=== PATIENT | female | born 2000 | race Caucasian/White ===

== ENCOUNTER 2022-05-01 18:30 | Outpatient (CLI) | payer OTHER, SELFPAY ==
[2022-05-01 21:57] VITALS: BP 140/85; PULSE 109
== END 2022-05-01 19:45 | disposition home or self-care (01) ==
PROVIDERS: Visit Provider Obstetrics & Gynecology
DX: O42.92 Full-term premature rupture of membranes, unspecified as to length of time between rupture and onset of labor (principal); Z3A.37 37 weeks gestation of pregnancy
CPT/HCPCS: 59025; 84112

== ENCOUNTER 2022-05-20 15:45 | Outpatient (RCR) | payer OTHER, SELFPAY ==
--- NOTE | ~2022-05-20 | US_ITS ---
EXAMINATION: US OB follow up w BPP, US OB limited DATE: 05/20/2022 17:27 INDICATION: Biophysical profile, amniotic fluid index assessment, and estimated weight during t hird trimester TECHNIQUE: Real-time pelvic ultrasound was performed. The interpreting radiologist was not present fo r the study. COMPARISON: None. FINDINGS: There is a single living fetus in vertex presentation. The placenta is anterior/right lateral. heart rate is 149 beats per minute (bpm). The amniotic fluid index is 8.3 cm which is normal (normal range: 7.1 cm to 21.4 cm). Biophysical profile performed by the technologist: breathing (30 sec sustained breathing in 30 minutes): 2 out of 2 movement (3 gross body movements in 30 minutes): 2 out of 2 tone (one episode of iwukfjp-sonqwlowm-ztvngqw limb movement): 2 out of 2 Amniotic fluid pocket (2 cm): 2 out of 2 Total score: 8 out of 8 The following biometric data were obtained: Biparietal diameter (BPD): 9.5 cm; head circumference (HC): 33.0 cm; abdominal circumference (AC): 36 .1 cm; femur length (FL): 7.5 cm. These measurements are concordant. Estimated weight is 3725 g +/- 558 g, which correlates with the 61st percentile when 05/21/2022 is used as estimated date of delivery. As single measurements, these parameters are each equal to the following estimated gestational ages w ith ranges of +/- 2 standard deviations: BPD: 38 weeks 5 days +/- 3 weeks 1 days. HC: 37 weeks 4 days +/- 2 weeks 5 days. AC: 40 weeks 0 days +/- 3 weeks 0 days. FL: 38 weeks 3 days +/- 3 weeks 1 days. estimated gestational age based solely on measurements from this exam is 38 weeks 5 days +/- 2 weeks 5 days. IMPRESSION: 1. Single living fetus in vertex presentation. 2. Biophysical profile 8 out of 8. 3. Estimated weight is 3725 g +/- 558 g, which correlates with the 61st percentile when 05/21/20 22 is used as estimated date of delivery. 4. Normal amniotic fluid index. Reviewed, dictated and finalized at location A. IMPRESSION: 1. Single living fetus in vertex presentation. 2. Biophysical profile 8 out of 8. 3. Estimated weight is 3725 g +/- 558 g, which correlates with the 61st p ercentile when 05/21/2022 is used as estimated date of delivery. 4. Normal amniotic fluid index.
[2022-05-20 16:35] VITALS: BP 121/73; PULSE 88
== END 2022-08-18 23:59 | disposition home or self-care (01) ==
LOC: ANHOBOP 15:45
PROVIDERS: Visit Provider Obstetrics & Gynecology
DX: O26.893 Other specified pregnancy related conditions, third trimester (principal); Z3A.39 39 weeks gestation of pregnancy
CPT/HCPCS: 59025; 76815; 76816; 76819

== ENCOUNTER 2022-05-21 16:00 | Inpatient (IN) | payer OTHER, SELFPAY ==
[2022-05-21] VITALS (14 sets, daily range): BP systolic 108–141; BP diastolic 61–93; PULSE 83–97; RESP 18; TEMP 37; BMI 37.5
--- NOTE | 2022-05-21 16:00 | LDADM ---
This patient, Sara Garrett, was admitted to Labor/Delivery/Recovery 106 on 05/21/22 at 16:00. Plans for labor, pain management and were discussed with patient. Patient/family oriented to hospital policies and general routines including ID bracelet, bed and alarms, visiting hours, pain management, procedures, bathroom and other care routines, personal items, smoking policy, room service/diet and guest tray routines, security routines, and visiting hours. Patient/Family are encouraged to report perceived risks to care and to ask questions if they do not understand what they are told or what they should do. See OBIX for further documentation.
[2022-05-21 16:51] LABS: Basophils Percent Auto 0.3 % (0.2-1.2); Eosinophils Absolute Auto 0.2 K/mm3 (0-0.3); Eosinophils Percent Auto 1.4 % (0-4.4); Hematocrit 34.5 % (37.0-47.0); Hemoglobin 11.3 g/dL (12.0-15.0); Immature Granulocyte Absolute 0.09 K/mm3 (0.00-0.031); Immature Granulocyte Percent A 0.7 % (0-0.5); Lymphocytes Absolute Auto 2.14 K/mm3 (0.9-3.2); Lymphocytes Percent Auto 15.7 % (18.3-44.2); Mean Corpuscular HGB Conc 32.8 g/dl (32-36); Mean Corpuscular Hemoglobin 27.2 pg (26-34); Mean Corpuscular Volume 82.9 fl (80-100); Mean Platelet Volume 10.4 fl (7.4-10.4); Monocytes Absolute Auto 0.8 K/mm3 (0.1-0.6); Monocytes Percent Auto 6.2 % (2.6-8.5); Neutrophils Absolute Auto 10.3 K/mm3 (1.3-6.7); Neutrophils Percent Auto 75.7 % (45.5-73.1); Platelet Count Result 294 k/mm3 (150-375); Red Blood Count 4.16 M/mm3 (4.2-5.4); Red Cell Distribution Width 16.3 % (11.5-14.5); White Blood Count 13.6 K/mm3 (4.5-10.0)
[2022-05-21] MEDS: DINOPROSTONE 10 MG VAG INSERT VAGINAL (17:15)
--- NOTE | 2022-05-21 18:33 | WPDANESEPP ---
Anes - Eval Pre Procedure Procedure: labor epidural Date/Time: 05/21/22 18:33 Surgeon: nicole Preop Diagnosis: pain during labor Pre Op Diagnosis: iol Patient Data Age: 21 Gender: F Height: 1.6 m Weight: 96 kg Last Vital Signs Pulse 83 05/21/22 18:31 BP 127/76 05/21/22 18:31 O2 Del Method Room Air 05/21/22 16:30 Allergies Allergy/AdvReac Type Severity Reaction Status Date / Time grass pollen Allergy Sneezing Verified 04/23/22 12:41 tree and shrub pollen Allergy Sneezing Verified 04/23/22 12:41 Home Medications Medication Instructions Recorded Confirmed Type prenat.vits,zeke,svs-fdtx-ubsdt 1 tablet PO DAILY 04/23/22 04/23/22 History Laboratory Tests 05/21/22 05/21/22 05/21/22 16:35 16:35 16:35 WBC 13.6 K/mm3 H K/mm3 (4.5-10.0) RBC 4.16 M/mm3 L M/mm3 (4.2-5.4) Hgb 11.3 g/dL L g/dL (12.0-15.0) Hct 34.5 % L % (37.0-47.0) MCV 82.9 fl fl (80-100) MCH 27.2 pg pg (26-34) MCHC 32.8 g/dl g/dl (32-36) RDW 16.3 % H % (11.5-14.5) Plt Count 294 k/mm3 k/mm3 (150-375) MPV 10.4 fl fl (7.4-10.4) Immature Gran % (Auto) 0.7 % H % (0-0.5) Neut % (Auto) 75.7 % H % (45.5-73.1) Lymph % (Auto) 15.7 % L % (18.3-44.2) Stephens % (Auto) 6.2 % % (2.6-8.5) Eos % (Auto) 1.4 % % (0-4.4) Baso % (Auto) 0.3 % % (0.2-1.2) Lymph # (Auto) 2.14 K/mm3 K/mm3 (0.9-3.2) [place] # (Auto) 0.8 K/mm3 H K/mm3 (0.1-0.6) Eos # (Auto) 0.2 K/mm3 K/mm3 (0-0.3) Baso # (Auto) 0.0 K/mm3 K/mm3 (0.0-0.1) Abs Immat Gran (auto) 0.09 K/mm3 H K/mm3 (0.00-0.031) Absolute Neuts (auto) 10.3 K/mm3 H K/mm3 (1.3-6.7) Absolute Nucleated RBC 0.0 K/mm3 K/mm3 (0.0-0.012) Nucleated RBC % 0.0 % % (0.0-0.2) RPR Pending Blood Type O Positive Antibody Screen Negative Patient hx anesthesia problems: none Family hx anesthesia problems: none Results Review: All pre-operative results and documents have been reviewed as part of the pre-operative evaluation. [facility] Family History Family History (Updated 04/23/22 @ 12:44 by Mo Tobar RN) Other Unknown family medical history Social History Social History Smoking status: Never smoker Substance use: never Spiritual care concerns: No Exam Day of Procedure 05/21/22 18:33
[2022-05-22] VITALS (203 sets, daily range): BP systolic 77–144; BP diastolic 40–104; PULSE 78–273; RESP 16; TEMP 36.9–37.3; O2SAT 90–100
[2022-05-22] MEDS: LACTATED RINGERS 1,000 ML 125 ML IV CONT ×3 (06:02→14:34)
[2022-05-22] MEDS: OXYTOCIN 30 UNITS/NS 500 ML 30 UNITS/500 ML BAG 125 UNITS IV CONT (06:02)
--- NOTE | 2022-05-22 08:41 | PM.IMHP ---
H&P: HPI History of Present Illness Date/Time: 05/22/22 08:41 Chief Complaint: Here for induction of labor. Narrative: 21 y/o G1 at 40 1/7 weeks gestation here for induction of labor. Cervidil last night, has been withdrawn. Feeling some contractions. GBS neg. Review of Systems Review of Systems: All systems reviewed & are unremarkable except as noted in HPI and below PMFSH Family History Family History Other Unknown family medical history Social History Social History Smoking status: Never smoker Substance use: never Spiritual care concerns: No Meds Home Medications and Allergies Home Medications Medication Instructions Recorded Confirmed Type prenat.vits,zeke,zsa-tcdp-oyxpp 1 tablet PO DAILY 04/23/22 04/23/22 History Allergies Allergy/AdvReac Type Severity Reaction Status Date / Time grass pollen Allergy Sneezing Verified 04/23/22 12:41 tree and shrub pollen Allergy Sneezing Verified 04/23/22 12:41 Vital Signs Vital Signs - 24 hr 05/21/22 16:44 05/21/22 16:46 05/21/22 17:01 Temperature Pulse Rate 93 97 89 Respiratory Rate Blood Pressure 120/71 116/73 141/89 H Oxygen Delivery 05/21/22 17:31 05/21/22 17:46 05/21/22 18:01 Temperature Pulse Rate 96 93 94 Respiratory Rate Blood Pressure 137/78 134/86 119/89 Oxygen Delivery 05/21/22 18:16 05/21/22 18:31 05/21/22 18:46 Temperature Pulse Rate 96 83 86 Respiratory Rate Blood Pressure 108/61 127/76 121/78 Oxygen Delivery 05/21/22 19:01 05/21/22 19:16 05/21/22 18:00 Temperature 37.0 C Pulse Rate 91 89 Respiratory Rate 18 Blood Pressure 123/93 H 126/90 Oxygen Delivery 05/21/22 18:30 05/21/22 23:43 05/22/22 04:58 Temperature 37.0 C 37.0 C 36.9 C Pulse Rate 91 88 Respiratory Rate 18 Blood Pressure 125/87 130/84 Oxygen Delivery 05/22/22 05:16 05/22/22 05:31 05/22/22 05:46 Temperature Pulse Rate 90 91 90 Respiratory Rate Blood Pressure 125/82 129/69 134/78 Oxygen Delivery 05/22/22 06:01 05/22/22 06:16 05/22/22 06:31 Temperature Pulse Rate 100 90 90 Respiratory Rate Blood Pressure 131/85 127/77 124/75 Oxygen Delivery 05/22/22 06:47 05/22/22 07:01 05/22/22 07:16 Temperature Pulse Rate 91 85 83 Respiratory Rate Blood Pressure 121/71 123/70 121/72 Oxygen Delivery 05/22/22 07:31 05/22/22 07:46 05/22/22 08:01 Temperature Pulse Rate 87 92 88 Respiratory Rate Blood Pressure 121/79 132/74 129/80 Oxygen Delivery 05/22/22 08:31 05/21/22 16:30 Temperature Pulse Rate 88 Respiratory Rate Blood Pressure 124/81 Oxygen Delivery Room Air Exam Const: Orientation/consciousness: patient oriented x3 Other: Well-developed, well-nourished female in no acute distress. Neck: Thyroid: thyroid normal Lymphatic: no lymphadenopathy noted (in neck, axilla or inguinal nodes) Resp: Effort & Inspection: normal respiratory effort Auscultation: clear to auscultation bilaterally Cardio: Rate: regular rate Rhythm: regular rhythm Heart sounds: S1 normal heart sound present and S2 normal heart sound present GI: Other: ABD: Gravid, soft, nontender, nondistended. No guarding or rebound tenderness. No hepatosplenomegaly. NST reactive. TOCO: irregular contractions. : General: Yes no CVA tenderness Other: Cervix 1/50/-3. AROM with clear fluid. IUPC placed. Back/Spine/Pelvis: Back: no CVA tenderness Skin: General skin exam: normal color and no rashes or lesions noted Neuro: General: patient oriented x3 Extrem: Other: Extremities: nontender with no edema Psych: Mental Status: mental status grossly normal Affect: normal affect H&P: Results Labs Labs: Short CBC 05/21/22 Range/Units 16:35 WBC 13.6 H (4.5-10.0) K/mm3 Hgb 11.3 L (12.0-15.0) g/dL Hct 34.5 L (37.0-47.0)
--- NOTE | 2022-05-22 13:15 | PM.OBPNLAB ---
Pain Control Date/time seen: 05/22/22 13:15 Feeling painful contractions. Would like epidural. AVSS NST reactive TOCO: contractions every 2-4 min Cervix /-2 Continue labor.
[2022-05-22 15:36] LABS: Rapid Plasma Reagin Non-Reactive (NonReactive)
--- NOTE | 2022-05-22 16:59 | PM.OBPNLAB ---
Pain Control Date/time seen: 05/22/22 16:59 Comfortable with epidural. AVSS NST reactive TOCO: contractions every 4-5 min Cervix 1-2/50/-2 per RN. Continue labor.
[2022-05-23] VITALS (100 sets, daily range): BP systolic 87–174; BP diastolic 47–109; PULSE 80–224; RESP 15–20; TEMP 36.6–39.2; O2SAT 86–100
[2022-05-23] MEDS: AMPICILLIN 2 GM/NS 100 ML 2 GM/100 ML BAG IVPB (02:20)
[2022-05-23] MEDS: SODIUM CHLORIDE 0.9% IV 300 ML 600 ML I-UTERINE (02:21)
[2022-05-23] MEDS: diphenhydrAMINE HCl INJ 50 MG/ML VIAL 25 MG IV PUSH (03:48)
[2022-05-23] MEDS: AMPICILLIN 1 GM/NS 50 ML 1 GM/50 ML BAG IVPB (06:45)
[2022-05-23] MEDS: LACTATED RINGERS 1,000 ML 999 ML IV CONT (07:03)
--- NOTE | 2022-05-23 07:30 | WPDANESEPP ---
Anes - Eval Pre Procedure Procedure: Operation Date: 05/23/22 07:30 Proposed Procedures p Section - Darryl Sheppard MD Date/Time: 05/23/22 07:30 Surgeon: Valarie Preop Diagnosis: Failure to progress Pre Op Diagnosis: iol Patient Data Age: 21 Gender: F Height: 1.6 m Weight: 96 kg Last Vital Signs Temp 39.1 C H 05/23/22 05:56 Pulse 121 H 05/23/22 07:01 Resp 16 05/23/22 05:56 BP 113/71 05/23/22 07:01 Pulse Ox 100 05/23/22 03:27 O2 Del Method Room Air 05/21/22 16:30 Allergies Allergy/AdvReac Type Severity Reaction Status Date / Time grass pollen Allergy Sneezing Verified 04/23/22 12:41 tree and shrub pollen Allergy Sneezing Verified 04/23/22 12:41 Home Medications Medication Instructions Recorded Confirmed Type prenat.vits,zeke,joc-pqfu-fquxs 1 tablet PO DAILY 04/23/22 04/23/22 History Laboratory Tests 05/21/22 16:35 RPR Non-reactive (NonReactive) Patient hx anesthesia problems: none Family hx anesthesia problems: none Results Review: All pre-operative results and documents have been reviewed as part of the pre-operative evaluation. [facility] Family History Family History Other Unknown family medical history Social History Social History Smoking status: Never smoker Substance use: never Spiritual care concerns: No Exam Day of Procedure 05/23/22 07:30 Patient weight: obese Heart: regular rate and rhythm Lungs: clear to auscultation Airway: Mallampati scale class II Neurological: alert and oriented
--- NOTE | 2022-05-23 07:43 | PM.OBPNLAB ---
Pain Control Date/time seen: 05/23/22 07:43 Still comfortable with epidural. T39.2C. Otherwise, VSS NST 180 bpm, occasional variable deceleration TOCO: adequate contractions Cervix 2/80/-2 A: Arrest of dilation, now with likely chorioamnionitis. P: Offered primary . She understands risks of surgery to include risks of anesthesia, risks of pain, infection, bleeding, blood products, thromboembolic phenomena and damage to adjacent structures such as bowel, bladder, ureters, blood vessels and nerves. She understands all these risks and elects to proceed with surgery.
[2022-05-23] MEDS: KETOROLAC 30 MG/ML VIAL (*BKC) IV PUSH ×2 (08:30→14:37)
--- NOTE | 2022-05-23 09:02 | PM.OBPRVD ---
OB - Delivery Note Procedure Delivery date: 05/23/22 Procedure: Procedures Operation Date: 05/23/22 07:30 <No data on this case meets the specified criteria> Primary low transverse delivery Induction method: Per Cervidil Protocol Delivery augmentation: Rupture of Membranes and Pitocin Delivery monitor: External FHT, External Uterine and Internal Uterine Route of delivery: Specimen: Yes (cord blood, placenta) Quantitative Blood Loss (ml): 1,120 Anesthesia type: Epidural Disposition: PACU Complications: None Narrative: The patient was taken to the operating room where she was prepared and draped in the usual sterile fashion in dorsal supine position with a leftward tilt. She received cefazolin and azithromycin preoperatively. Epidural anesthesia was found to be adequate. A Pfannenstiel skin incision was made and carried through to the underlying layer of the fascia. The fascia was incised in the midline and the incision was extended laterally. The fascia was dissected free of the underlying rectus muscles. The rectus muscles were in the midline. The peritoneum was identified, tented up and entered sharply. The peritoneal incision was extended superiorly and inferiorly with good visualization of the bladder. The bladder blade was placed. The vesicouterine peritoneum was identified, tented up and entered sharply. The incision was extended laterally and the bladder flap was developed. The bladder blade was replaced. The uterus was then incised sharply in a transverse fashion along the lower uterine segment. The incision was extended laterally. The infant's head was delivered atraumatically to the sterile field, followed by the body. The nose and mouth were bulb suctioned. After a delay, the cord was clamped and cut. The infant was handed off the field. Cord blood was collected. The placenta was removed manually and was passed off the field. The uterus was exteriorized and cleared of all clots and debris. The uterine incision was reapproximated using 0 Monocryl in a running, locked fashion. A second, imbricating layer of the same suture was run. Excellent hemostasis resulted as did excellent reapproximation of the normal anatomy. The uterus was returned the abdomen. The pelvis was irrigated copiously with warmed normal saline. Rigorous hemostasis was assured. The fascial layer was reapproximated using 0 Vicryl in a running fashion. The skin was closed with a running, subcuticular stitch of 4 0 Vicryl. Dermaflex was applied externally. Sponge, lap, needle and instrument counts were correct. The patient was taken to the recovery room in stable condition. The went to the nursery in stable condition. I was present and scrubbed the entire procedure. Baby Date of : 05/23/22 Time of : 08:16 Weeks of gestation at delivery: 40 gender: Female Weight (pounds): 7 Weight (ounces): 4 presentation: vertex Placenta delivery description: Manual Removal and Normal Configuration Cord Vessel Description: 3 Vessels and Delayed Cord Clamping score one minute: 7 score five minutes: 9
--- NOTE | 2022-05-23 09:06 | PM.OBDSVD ---
DS: Admitting Diagnosis Discharge Date 05/25/22 Admitting Diagnosis IUP at 40 1/7 weeks DS: Discharge Diagnosis Discharge Diagnosis (1) delivery delivered: Code(s): O82 - Encounter for delivery without indication Status: Acute (2) Chorioamnionitis, delivered, current hospitalization: Code(s): O41.1290 - Chorioamnionitis, unspecified trimester, not applicable or unspecified Status: Acute OB - DS: Summary OB Procedures : NST OB Procedures Intrapartum: OB Procedures: : None Peripartum Data Procedures: Procedures Operation Date: 05/23/22 07:30 <No data on this case meets the specified criteria> Time Spent with Patient Time attestation: Total time spent providing and/or coordinating discharge services: DS: Data Data Completed and Pending Labs on day of discharge: Labs from last 24 hours 05/21/22 16:35 RPR Non-reactive Discharge Plan Discharge Attending physician on discharge: Darryl Sheppard Consulting providers: Merari Reyna ; Verenice Barajas ; Dawna Piña Discharging Clinician: Darryl Sheppard Patient Disposition: Home, Self-Care Activity: may shower, may drive after 2 weeks and pelvic rest Diet: regular Wound Care Instructions: incision open to air Discharge Instructions: Education: Mom and Baby Guide Given to: Mother Follow-Up: Call your delivering provider's office for an appointment to be seen in: 4 Weeks Mom and baby should come to the [facility] for the follow-up appointment. Appointment Date/Time: May 27, 2022 at 8:00 am What to expect at your follow-up visit: Blood Pressure Check Physical Assessment Call [phone] if you are unable to keep your appointment time. BREAST CARE: * Wear a snug supportive bra. * For engorgement discomfort: Breast Feeding: * Apply warm moist washcloths * Express milk as needed to relieve engorgement * Wear loose clothing Bottle Feeding: * May apply ice packs * For sore nipples: * Identify correct latch-on * Apply warm moist washcloths before and after nursing * Air dry nipples after nursing * May apply Lansinoh cream to nipples ABDOMINAL INCISION: * Allow incision to air dry * Do NOT use lotions for powders on your incision * When showering, allow soap and water to run over the incision, but do not wash incision PERINEAL CARE: * Until bleeding stops, use your chip bottle after urinating * Change your pad frequently throughout the day * You may take sitz baths several times a day (fill your bathtub with warm water and soak for 20 minutes.) Do NOT bathe in the water * No tub baths until seen by your physician - You may shower ACTIVITY: * Rest as much as possible. * Do not exercise or lift anything heavier than your baby (such as laundry or other children.) * Avoid stairs or driving as much as possible. * Do not put anything into the vagina. No douching, tampons, or sexual activity until seen by physician. NOTIFY PHYSICIAN IF YOU HAVE ANY QUESTIONS OR IF ANY OF THE FOLLOWING SYMPTOMS OCCUR: * If your incision becomes red, swollen, or more painful than what you have experienced in the hospital. * If your vaginal bleeding becomes foul smelling. * If your vaginal bleeding becomes more heavy than a period or if your bleeding changes from pink to bright red. However, you may pass an occasional walnut-sized clot once or twice for the first week . * If you experience a sharp, shooting pain in you calves. * If you discover a hard, reddened area on your breast or if you experience flu-like symptoms. DIET: * Eat regular, well-balanced meals. * Drink plenty of fluids daily. If , drink to thirst. Call or return if temperature above 100.4? F, increased abdominal pain, increased vaginal bleeding or any new problems. Patient Instructions: A
[2022-05-23] MEDS: OXYTOCIN 30 UNITS/NS 500 ML 30 UNITS/500 ML BAG 125 UNITS IV CONT (09:15)
[2022-05-23] MEDS: MORPHINE SULFATE INJ (*CRX) 10 MG/ML AMP 2 MG IV PUSH ×3 (09:34→10:46)
--- NOTE | 2022-05-23 11:42 | OBPPTRN ---
Patient transferred to post room #284 via stretcher. Support person present. Oriented to unit, room, information board, rooming in, admission packet and security measures. Patient verbalizes understanding.
[2022-05-23] MEDS: DEXTROSE 5%/0.45% SOD CHL 1,000 ML 125 ML IV CONT (12:26)
[2022-05-23] MEDS: DOCUSATE SODIUM 100 MG CAPSULE PO (16:26)
[2022-05-23] MEDS: HYDROcodone/acetaminophen (*CRX) 5-325 MG TABLET 1 TAB PO ×2 (18:27→21:11)
[2022-05-23] MEDS: IBUPROFEN 600 MG TABLET PO (21:11)
[2022-05-24 00:40] VITALS: BP 138/80; PULSE 125; RESP 24; TEMP 36.9; O2SAT 100
[2022-05-24] MEDS: HYDROcodone/acetaminophen (*CRX) 5-325 MG TABLET 1 TAB PO ×6 (00:42→19:27)
--- NOTE | 2022-05-24 00:50 | PC.NURSE ---
At 0035, patient called the nurses station requesting help immediately. Upon entering the room this RN observed patient in a panicked state, half out of her bed. After inquiring about what was wrong, the patient stated, I don't know, I don't know, I'm scared. I tried to get up and I didn't know I was getting up. Vital signs taken @ 0040. BP: 138/80 P:125 RR: 24, O2: 100%, T: 98.5. Explained to the patient she was possibly sleep walking and woke from a deep sleep. Encouraged pt to take a few slow deep breaths. At 0045, pt stood up out of bed and voiced her incision was hurting. RN offered pain medication once pt returned to bed with assistance. After taking the medication and settling back in bed, patient appeared in a much calmer state and stated, It's not abnormal for me to be panicked, I've had a few anxiety attacks since I've been here.
[2022-05-24 04:50] VITALS: BP 108/64; PULSE 76; RESP 16; TEMP 36.4
[2022-05-24] MEDS: IBUPROFEN 600 MG TABLET PO ×3 (04:51→21:24)
[2022-05-24 05:32] LABS: Basophils Percent Auto 0.2 % (0.2-1.2); Eosinophils Percent Auto 0.2 % (0-4.4); Hematocrit 24.4 % (37.0-47.0); Hemoglobin 7.7 g/dL (12.0-15.0); Lymphocytes Percent Auto 8.7 % (18.3-44.2); Mean Corpuscular HGB Conc 31.6 g/dl (32-36); Mean Corpuscular Hemoglobin 27.6 pg (26-34); Mean Corpuscular Volume 87.5 fl (80-100); Mean Platelet Volume 10.2 fl (7.4-10.4); Monocytes Absolute Auto 0.4 K/mm3 (0.1-0.6); Monocytes Percent Auto 4.1 % (2.6-8.5); Neutrophils Absolute Auto 8.9 K/mm3 (1.3-6.7); Neutrophils Percent Auto 85.8 % (45.5-73.1); Platelet Count Result 174 k/mm3 (150-375); Red Blood Count 2.79 M/mm3 (4.2-5.4); Red Cell Distribution Width 17.4 % (11.5-14.5); White Blood Count 10.4 K/mm3 (4.5-10.0)
[2022-05-24 08:25] VITALS: BP 111/74; PULSE 76; RESP 16; TEMP 36.9; O2SAT 99
[2022-05-24] MEDS: POLYSACCHARIDE IRON COMPLEX 150 MG CAPSULE PO ×2 (08:46→16:42)
[2022-05-24] MEDS: SIMETHICONE 80 MG TAB.CHEW PO (08:46)
[2022-05-24] MEDS: DOCUSATE SODIUM 100 MG CAPSULE PO ×2 (08:46→16:42)
[2022-05-24] MEDS: MULTIVIT/MIN/PREN/FOL AC/IRON TABLET 1 TAB PO (08:47)
--- NOTE | 2022-05-24 08:57 | WPDANLDPN2 ---
Anes-Prog Note L&D Date/Time: 05/24/22 08:57 Comfortable throughout: labor and section Neuraxial method: epidural Epidural/Spinal procedure site: clean & non-tender Neuro status: Neuro function grossly intact. Cardiovascular status: normal Respiratory status: normal Airway patency: baseline Mental status: baseline Post-Op hydration status: normal Vital Signs: Last Vital Signs Temp 36.4 C L 05/24/22 04:50 Pulse 76 05/24/22 04:50 Resp 16 05/24/22 04:50 BP 108/64 05/24/22 04:50 Pulse Ox 100 05/24/22 00:40 O2 Del Method Room Air 05/24/22 04:50 Pain score (VAS): 2/10 I/O: Intake & Output 05/23/22 05/24/22 05/24/22 23:59 07:59 15:59 Intake Total 2400 1000 Output Total 2650 1150 Balance -250 -150 Post-procedural complaints: none Patient feedback: Patient satisfied with anesthetic care.
--- NOTE | 2022-05-24 08:57 | WPDANLDNPN2 ---
Anes-Prog Note L&D-Neuraxial Date/Time: 05/24/22 08:57 Neuraxial medications: epidural PF morphine Opiod-related complaints: none Patient feedback: Patient satisfied with post-operative pain management.
--- NOTE | 2022-05-24 13:52 | P.PNOB_ITS ---
OB - PN: Subj Subjective Date/time seen: 05/24/22 13:52 Patient comments: no complaints and pain well controlled baby status: doing well and nursing well OB - PN: Obj Data Labs CBC & Chem 7: 05/24/22 04:57 Labs: Laboratory Results - last 24 hr 05/24/22 04:57 WBC 10.4 H RBC 2.79 L Hgb 7.7 L D Hct 24.4 L MCV 87.5 D MCH 27.6 MCHC 31.6 L RDW 17.4 H Plt Count 174 MPV 10.2 Immature Gran % (Auto) 1.0 H Neut % (Auto) 85.8 H Lymph % (Auto) 8.7 L [place] % (Auto) 4.1 Eos % (Auto) 0.2 Baso % (Auto) 0.2 Lymph # (Auto) 0.90 [place] # (Auto) 0.4 Eos # (Auto) 0.0 Baso # (Auto) 0.0 Abs Immat Gran (auto) 0.10 H Absolute Neuts (auto) 8.9 H Absolute Nucleated RBC 0.0 Nucleated RBC % 0.0 OB - PN A/P Plan day: 1 Plan: routine care Comments: hemoglobin drop consistent with description of procedure. Recheck H and H in a.m. Time Spent With Patient Time: Total time spent is greater than 50% in coordination of care (as documented) at patient's floor/unit and/or counseling patient: Time with patient: less than 15 minutes Exam Const: General: cooperative, healthy appearing and comfortable Chest: Chest palpation & inspection: normal inspection of the chest Resp: Effort & Inspection: normal respiratory effort GI: Inspection: normal to inspection and incision (cdi) Auscultation: normal bowel sounds
[2022-05-24 19:15] VITALS: BP 132/86; PULSE 100; RESP 18; TEMP 37; O2SAT 99
[2022-05-25] MEDS: HYDROcodone/acetaminophen (*CRX) 5-325 MG TABLET 1 TAB PO (03:17)
[2022-05-25 04:19] LABS: Hematocrit 27.1 % (37.0-47.0); Hemoglobin 8.6 g/dL (12.0-15.0)
--- NOTE | 2022-05-25 05:50 | PM.OBPNVD ---
OB - PN: Subj Subjective Date/time seen: 05/25/22 05:50 Patient comments: no complaints and pain well controlled baby status: doing well and nursing well OB - PN: Obj Data Labs CBC & Chem 7: 05/25/22 03:24 Labs: Laboratory Results - last 24 hr 05/25/22 03:24 Hgb 8.6 L Hct 27.1 L OB - PN A/P Plan day: 2 Plan: routine care Time Spent With Patient Time: Total time spent is greater than 50% in coordination of care (as documented) at patient's floor/unit and/or counseling patient: Time with patient: less than 15 minutes Exam Const: General: cooperative, healthy appearing and comfortable
[2022-05-25] MEDS: IBUPROFEN 600 MG TABLET PO (08:10)
[2022-05-25] MEDS: MULTIVIT/MIN/PREN/FOL AC/IRON TABLET 1 TAB PO (08:10)
[2022-05-25] MEDS: POLYSACCHARIDE IRON COMPLEX 150 MG CAPSULE PO (08:10)
[2022-05-25] MEDS: DOCUSATE SODIUM 100 MG CAPSULE PO (08:10)
[2022-05-25 08:38] VITALS: BP 134/93; PULSE 94; RESP 17; TEMP 37.5
[2022-05-25 10:00] VITALS: BP 129/80
--- NOTE | 2022-05-25 11:55 | PC.NURSE ---
Patient viewed the discharge video Mother & Baby Care, The First Two Weeks . Patient was given the opportunity and encouraged to ask questions. Patient verbalized understanding of information shared and has been given the mother/baby guide for home reference.
[2022-05-27 08:19] VITALS: BP 134/88; PULSE 83; RESP 20; TEMP 37.2; O2SAT 99
== END 2022-05-25 12:40 | disposition home or self-care (01) | DRG 540 ==
LOC: ANHLDR 05-23 09:06 → ANHOB2 05-25 11:20 → ANHLDR 05-27 10:36 → ANHOB2 05-27 10:36
PROVIDERS: Admitting Provider Obstetrics & Gynecology; Visit Provider Obstetrics & Gynecology
PROC: 10D00Z1 Extraction of Products of Conception, Low, Open Approach (ICD-10-PCS; CPT 59514; principal; 2022-05-23 07:30)
DX: O75.2 Pyrexia during labor, not elsewhere classified (principal); O41.1230 Chorioamnionitis, third trimester, not applicable or unspecified; O62.2 Other uterine inertia; O76 Abnormality in fetal heart rate and rhythm complicating labor and delivery; Z3A.40 40 weeks gestation of pregnancy; Z37.0 Single live birth
CPT/HCPCS: 36415; 85014; 85018; 85025; 86592; 86850; 86900; 86901; 88307; A9270; J0131; J0290; J0456; J1100; J1200; J1885; J2270; J2274; J2405; J2590; J2795; J7030; J7120

== ENCOUNTER 2024-11-03 12:25 | Outpatient (CLI) | payer OTHER, SELFPAY ==
[2024-11-03 12:42] LABS: Basophils Absolute Auto 0.1 K/mm3 (0.0-0.1); Basophils Percent Auto 0.5 % (0.2-1.2); Eosinophils Absolute Auto 0.1 K/mm3 (0-0.3); Eosinophils Percent Auto 0.8 % (0-4.4); Hematocrit 32.2 % (37.0-47.0); Hemoglobin 10.2 g/dL (12.0-15.0); Immature Granulocyte Absolute 0.11 K/mm3 (0.00-0.031); Immature Granulocyte Percent A 0.8 % (0-0.5); Lymphocytes Absolute Auto 2.54 K/mm3 (0.9-3.2); Lymphocytes Percent Auto 19.1 % (18.3-44.2); Mean Corpuscular HGB Conc 31.7 g/dl (32-36); Mean Corpuscular Hemoglobin 25.5 pg (26-34); Mean Corpuscular Volume 80.5 fl (80-100); Monocytes Absolute Auto 0.7 K/mm3 (0.1-0.6); Monocytes Percent Auto 5.3 % (2.6-8.5); Neutrophils Absolute Auto 9.8 K/mm3 (1.3-6.7); Neutrophils Percent Auto 73.5 % (45.5-73.1); Platelet Count Result 273 k/mm3 (150-375); Red Cell Distribution Width 13.1 % (11.5-14.5); White Blood Count 13.3 K/mm3 (4.5-10.0)
[2024-11-03 13:24] LABS: Syphilis IgG/IgM Antibody Negative (Negative)
[2024-11-03 13:32] LABS: HIV 1/2 Ab P24 Ag Result Negative (Negative)
== END 2024-11-03 12:26 | disposition home or self-care (01) ==
LOC: ANHLAB 12:25
PROVIDERS: Visit Provider Obstetrics & Gynecology
DX: Z01.818 Encounter for other preprocedural examination (principal); Z3A.00 Weeks of gestation of pregnancy not specified
CPT/HCPCS: 36415; 85025; 86593; 86703; 86850; 86900; 86901; G0432

== ENCOUNTER 2024-11-04 09:46 | Inpatient (IN) | payer OTHER, SELFPAY ==
[2024-11-04] VITALS (44 sets, daily range): BP systolic 109–130; BP diastolic 47–96; PULSE 69–192; RESP 14–18; TEMP 36.4–37.3; O2SAT 92–100; BMI 30.8
--- NOTE | 2024-11-04 09:03 | PM.IMHP ---
H&P: HPI History of Present Illness Date/Time: 11/04/24 09:03 Chief Complaint: Here for c section Narrative: 24 y/o at 39 weeks here for repeat . GBS neg. Review of Systems Review of Systems: All systems reviewed & are unremarkable except as noted in HPI and below PMFSH Surgical History Surgical History (Updated 11/04/24 @ 09:05 by Darryl Sheppard MD) History of delivery Family History Family History Other Unknown family medical history Social History Social History Smoking status: Never smoker Substance use: never Spiritual care concerns: No Meds Home Medications and Allergies Home Medications ?Medication ?Instructions ?Recorded ?Confirmed ?Type prenat.vits,zeke,wty-cdls-cfmpv 1 tablet PO DAILY 04/23/22 10/07/24 History Allergies Allergy/AdvReac Type Severity Reaction Status Date / Time grass pollen Allergy Sneezing Verified 10/07/24 15:44 tree and shrub pollen Allergy Sneezing Verified 10/07/24 15:44 Exam Const: Orientation/consciousness: patient oriented x3 Other: Well-developed, well-nourished female in no acute distress. Neck: Thyroid: thyroid normal Lymphatic: no lymphadenopathy noted (in neck, axilla or inguinal nodes) Resp: Effort & Inspection: normal respiratory effort Auscultation: clear to auscultation bilaterally Cardio: Rate: regular rate Rhythm: regular rhythm Heart sounds: S1 normal heart sound present and S2 normal heart sound present GI: Other: ABD: Soft, nontender, nondistended, gravid. FHR doppled. No guarding or rebound tenderness. No hepatosplenomegaly. : General: Yes no CVA tenderness Other: Cervix closed, thick. Back/Spine/Pelvis: Back: no CVA tenderness Skin: General skin exam: normal color and no rashes or lesions noted Neuro: General: patient oriented x3 Extrem: Other: Extremities: nontender with no edema Psych: Mental Status: mental status grossly normal Affect: normal affect Assessment and Plan Assessment and plan (1) Term : Code(s): Z34.90 - Encounter for supervision of normal , unspecified, unspecified trimester Status: Acute Assessment and Plan: A: IUP at 39 weeks with prior , desiring repeat. P: Offered repeat . She understands risks of surgery to include risks of anesthesia, risks of pain, infection, bleeding, blood products, thromboembolic phenomena and damage to adjacent structures such as bowel, bladder, ureters, blood vessels and nerves. She understands all these risks and elects to proceed with surgery. (2) History of delivery: Code(s): Z98.891 - History of uterine scar from previous surgery Status: Acute
--- NOTE | 2024-11-04 10:24 | LDADM ---
This patient, Sara Fink, was admitted to Labor/Delivery/Recovery 119 on 11/04/24 at 09:46. Plans for labor, pain management and were discussed with patient. Patient/family oriented to hospital policies and general routines including ID bracelet, bed and alarms, visiting hours, pain management, procedures, bathroom and other care routines, personal items, smoking policy, room service/diet and guest tray routines, security routines, and visiting hours. Patient/Family are encouraged to report perceived risks to care and to ask questions if they do not understand what they are told or what they should do. See OBIX for further documentation.
[2024-11-04] MEDS: ACETAMINOPHEN 500 MG TABLET 1000 MG PO (10:33)
[2024-11-04] MEDS: LACTATED RINGERS 1,000 ML 125 ML IV CONT ×2 (10:37→12:15)
--- NOTE | 2024-11-04 12:00 | WPDANESEPPF ---
Anes - Initial Pre Proc Eval Procedure: Operation Date: 11/04/24 12:00 Proposed Procedures p Repeat Section - Darryl Sheppard MD Date/Time: 11/04/24 12:00 Surgeon: Darryl Sheppard MD Pre Op Diagnosis: C/Section Patient Data Age: 24 Gender: F Height: 1.6 m Weight: 79 kg Last Vital Signs Temp 36.6 C 11/04/24 11:00 Pulse 95 11/04/24 11:30 BP 121/81 11/04/24 11:30 O2 Del Method Room Air 11/04/24 10:19 Allergies Allergy/AdvReac Type Severity Reaction Status Date / Time grass pollen Allergy Sneezing Verified 10/07/24 15:44 tree and shrub pollen Allergy Sneezing Verified 10/07/24 15:44 Home Medications ?Medication ?Instructions ?Recorded ?Confirmed ?Type prenat.vits,zeke,wof-nuzq-xwoyw 1 tablet PO DAILY 04/23/22 11/04/24 History Patient hx anesthesia problems: none Family hx anesthesia problems: none Results Review: All pre-operative results and documents have been reviewed as part of the pre-operative evaluation. [facility] Surgical History Surgical History History of delivery Family History Family History Other Unknown family medical history Social History Social History Smoking status: Never smoker Substance use: never Do You Feel Safe in your Home?: Yes Lack of Transportation: No Lack of Food: Never True Current Housing: I Have Housing Concerned About Future Housing: No Difficulty Paying Gas/Electric Bills: No Difficulty Paying for Meds: No Currently Unemployed: No Education: Associate Degree Difficulty w/ Childcare or Family Care: No Spiritual care concerns: No Anes - Eval Final PreProcedure Day of Procedure 11/04/24 12:00 Patient weight: overweight Heart: regular rate and rhythm Lungs: clear to auscultation Airway: Mallampati scale class II Neurological: alert and oriented Last oral intake: >/= 8 hours ASA classification: II Emergent: no Anesthetic plan: proceed Anesthesia type and monitoring: regional spinal and standard monitoring Results Review: All pre-operative results and documents have been reviewed as part of the pre-operative evaluation. Informed Consent: The patient's anesthetic plan and its attendant risks and benefits were discussed with the patient/family/POA. Questions were solicited and answers provided to the satisfaction of the patient/family/POA.
--- NOTE | 2024-11-04 12:17 | WPDHPUPDATE1 ---
History and Physical Update Update Date/Time: 11/04/24 12:17 History and Physical has been reviewed, including an updated exam of the patient. There are NO changes in the patient's condition. Risks, benefits, and alternatives have been discussed and questions answered. Patient agrees to proceed with procedure.
[2024-11-04] MEDS: FAMOTIDINE 20 MG/2 ML VIAL IV PUSH (12:34)
[2024-11-04] MEDS: ONDANSETRON INJ 4 MG/2 ML VIAL IV PUSH (12:34)
[2024-11-04] MEDS: ceFAZolin 2 GM/D5W 50 ML 2 GM/50 ML BAG IVPB (12:35)
--- NOTE | 2024-11-04 13:49 | P.PCNOB_ITS ---
OB - Delivery Note Procedure Delivery date: 11/04/24 Pre-op diagnosis: Previous Delivery Post-op Diagnosis: Same Delivery monitor: External FHT and External Uterine Procedure Performed: Repeat Surgeon: Darryl Sheppard MD Anesthesia type: Spinal Description of Procedure/Findings: Findings: Normal-appearing uterus, tubes and ovaries. Techniques: The patient was taken to the operating room where she was prepared and draped in the usual sterile fashion in dorsal supine position with a le ftward tilt. She received cefazolin preoperatively. Spinal anesthesia was found to be adequate. A Pfannenstiel skin incision was made, excising the previous scar. The incision was carried through to the underlying layer of the fascia. The fascia was incised in the midline and the incision was extended laterally. The fascia was dissected free of the underlying rectus muscles. The rectus muscles were in the midline. The peritoneum was identified, tented up and entered sharply. The peritoneal incision was extended superiorly and inferiorly with good visualization of the bladder. The bladder blade was placed. The vesicouterine peritoneum was identified, tented up and entered sharply. The incision was extended laterally and the bladder flap was developed. The bladder blade was replaced. The uterus was then incised sharply in a transverse fashion along the lower uterine segment. The incision was extended laterally. The 's head was delivered atraumatically to the sterile field, followed by the body. The nose and mouth were bulb suctioned. After a delay, the cord was clamped and cut. The infant was handed off the field. Cord blood was collected. The placenta was removed manually and was passed off the field. The uterus was exteriorized and cleared of all clots and debris. The uterine incision was reapproximated using 0 Monocryl in a running, locked fashion. Excellent hemostasis resulted as did excellent reapproximation of the normal anatomy. The uterus was returned the abdomen. The pelvis was irrigated copiously with warmed normal saline. Rigorous hemostasis was assured. The fascial layer was reapproximated using 0 Vicryl in a running fashion. The skin was closed with a running, subcuticular stitch of 4 0 Vicryl. Dermaflex was applied externally. Sponge, lap, needle and instrument counts were correct. The patient was taken to the recovery room in stable condition. The infant went to the nursery in stable condition. I was present and scrubbed the entire procedure. Specimen: Yes (cord blood) Estimated Blood Loss: 745 Drains: Yes (nowak) Packing: No Pathology: Yes (cord blood) Complications: None Condition: Stable Disposition: PACU Baby Date of : 11/04/24 Time of : 13:24 Gestational Age by Date: 39 Infant gender: Male Weight (pounds): 7 Weight (ounces): 14 presentation: vertex Placenta delivery description: Manual Removal and Normal Configuration Cord Vessel Description: 3 Vessels and Delayed Cord Clamping score one minute: 8 score five minutes: 9
--- NOTE | 2024-11-04 13:50 | P.DS_ITS ---
DS: Admitting Diagnosis Discharge Date 11/06/24 <Carmelina Ballard MD - Last Filed: 11/06/24 09:21> Admitting Diagnosis IUP at 39 weeks Prior <Darryl Sheppard MD - Last Filed: 11/04/24 13:52> DS: Discharge Diagnosis Discharge Diagnosis (1) delivery delivered: Code(s): O82 - Encounter for delivery without indication <Darryl Sheppard MD - Last Filed: 11/04/24 13:52> Status: Acute <Darryl Sheppard MD - Last Filed: 11/04/24 13:52> OB - DS: Summary OB Procedures : None <Darryl Sheppard MD - Last Filed: 11/04/24 13:52> OB Procedures Intrapartum: <Darryl Sheppard MD - Last Filed: 11/04/24 13:52> OB Procedures: : None <Darryl Sheppard MD - Last Filed: 11/04/24 13:52> Peripartum Data Procedures: Procedures Operation Date: 11/04/24 12:00 <No data on this case meets the specified criteria> <Darryl Sheppard MD - Last Filed: 11/04/24 13:52> Time Spent with Patient Time attestation: Total time spent providing and/or coordinating discharge services: <Darryl Sheppard MD - Last Filed: 11/04/24 13:52> Discharge Plan Discharge Attending physician on discharge: Darryl Sheppard <Darryl Sheppard MD - Last Filed: 11/04/24 13:52> Darryl Sheppard <Carmelina Ballard MD - Last Filed: 11/06/24 09:21> Discharging Clinician: Carmelina Ballard <Darryl Sheppard MD - Last Filed: 11/04/24 13:52> Carmelina Ballard <Carmelina Ballard MD - Last Filed: 11/06/24 09:21> Patient Disposition: Home, Self-Care <Darryl Sheppard MD - Last Filed: 11/04/24 13:52> Activity: may shower, may drive after 2 weeks and pelvic rest <Darryl Sheppard MD - Last Filed: 11/04/24 13:52> may shower, may drive after 2 weeks and pelvic rest <Carmelina Ballard MD - Last Filed: 11/06/24 09:21> Diet: regular <Darryl Sheppard MD - Last Filed: 11/04/24 13:52> regular <Carmelina Ballard MD - Last Filed: 11/06/24 09:21> Wound Care Instructions: incision open to air <Darryl Sheppard MD - Last Filed: 11/04/24 13:52> incision open to air <Carmelina Ballard MD - Last Filed: 11/06/24 09:21> Discharge Instructions: Call or return if temperature above 100.4? F, increased abdominal pain, increased vaginal bleeding or any new problems. <Darryl Sheppard MD - Last Filed: 11/04/24 13:52> Patient Language: [place] Islander <Darryl Sheppard MD - Last Filed: 11/04/24 13:52> Stand Alone Forms: General Discharge Information <Darryl Sheppard MD - Last Filed: 11/04/24 13:52> Follow-up/Referrals: Darryl Sheppard MD [Physician] - 4 Weeks <Darryl Sheppard MD - Last Filed: 11/04/24 13:52> Discharge Medications: New ibuprofen 600 mg tablet 600 mg PO Q6H PRN (Reason: cramps) Qty: 30 0RF Continued prenat.vits,zeke,rhx-pvft-vdkeq Tablet 1 tablet PO DAILY <Darryl Sheppard MD - Last Filed: 11/04/24 13:52> Date of admission: 11/04/24 09:46 <Darryl Sheppard MD - Last Filed: 11/04/24 13:52> Primary Care Provider: UNKNOWN,DOCTOR <Darryl Sheppard MD - Last Filed: 11/04/24 13:52> Admitting Provider: Darryl Sheppard <Darryl Sheppard MD - Last Filed: 11/04/24 13:52> Attending physician on admission: Darryl Sheppard <Darryl Sheppard MD - Last Filed: 11/04/24 13:52> Condition: Stable <Darryl Sheppard MD - Last Filed: 11/04/24 13:52>
[2024-11-04] MEDS: OXYTOCIN 30 UNITS/NS 500 ML 30 UNITS/500 ML BAG 125 UNITS IV CONT (14:57)
[2024-11-04] MEDS: LORATADINE 10 MG TABLET (14:58)
[2024-11-04] MEDS: fentaNYL CITRATE INJ (*CRX) 100 MCG/2 ML VIAL 25 MCG IV PUSH ×2 (15:15→15:57)
--- NOTE | 2024-11-04 16:23 | PC.NURSE ---
Patient transferred to post room #292 via stretcher. Support person present. Oriented to unit, room, information board, rooming in, admission packet and security measures. Patient verbalizes understanding.
--- NOTE | 2024-11-04 17:22 | PC.NURSE ---
1645. Introductions were made, then consulted with patient to assess needs related to . Discussed with mother her plans to feed her and the experience so far. Mom expresses it is her intention to breastfeed and also pump and feed. She reports she did this with her first child. Reviewed early feeding cues. Encouraged mother to express any questions or concerns she has regarding feedings. Advised her to call out for a latch check or if she needs assistance waking or positioning baby. Reviewed the blue feeding worksheet for required output and feeding at least 8-12 times every 24 hours. Resources provided for inpatient and outpatient services with the feeding sheet, mom/baby guide, admission packet and name/number written on the communication board. Mother voiced understanding of information and will call if there is a request for assistance. Reported to the Primary RN?
[2024-11-04] MEDS: SIMETHICONE 80 MG TAB.CHEW PO (17:23)
[2024-11-04] MEDS: ACETAMINOPHEN 325 MG TABLET 650 MG PO ×2 (17:25→22:57)
[2024-11-04] MEDS: KETOROLAC 15 MG/ML VIAL (*BKC) IV PUSH ×2 (17:25→22:57)
[2024-11-04] MEDS: LIDOCAINE 5% PATCH 1 PATCH TRANSDERM (17:26)
[2024-11-04] MEDS: DEXTROSE 5%/0.45% SOD CHL 1,000 ML 125 ML IV CONT (19:30)
[2024-11-05 00:30] VITALS: BP 118/70; PULSE 87; RESP 16; TEMP 37.2; O2SAT 100
[2024-11-05 04:12] VITALS: BP 124/77; PULSE 88; RESP 14; TEMP 37.1; O2SAT 100
[2024-11-05 04:23] LABS: Basophils Absolute Auto 0.1 K/mm3 (0.0-0.1); Basophils Percent Auto 0.3 % (0.2-1.2); Eosinophils Percent Auto 0.2 % (0-4.4); Hematocrit 23.4 % (37.0-47.0); Hemoglobin 7.2 g/dL (12.0-15.0); Immature Granulocyte Absolute 0.08 K/mm3 (0.00-0.031); Immature Granulocyte Percent A 0.5 % (0-0.5); Lymphocytes Percent Auto 20.3 % (18.3-44.2); Mean Corpuscular HGB Conc 30.8 g/dl (32-36); Mean Corpuscular Hemoglobin 25.2 pg (26-34); Mean Corpuscular Volume 81.8 fl (80-100); Mean Platelet Volume 10.9 fl (7.4-10.4); Monocytes Absolute Auto 1.1 K/mm3 (0.1-0.6); Monocytes Percent Auto 6.6 % (2.6-8.5); Neutrophils Absolute Auto 12.1 K/mm3 (1.3-6.7); Neutrophils Percent Auto 72.1 % (45.5-73.1); Platelet Count Result 225 k/mm3 (150-375); Red Blood Count 2.86 M/mm3 (4.2-5.4); Red Cell Distribution Width 13.2 % (11.5-14.5); White Blood Count 16.8 K/mm3 (4.5-10.0)
[2024-11-05] MEDS: KETOROLAC 15 MG/ML VIAL (*BKC) IV PUSH ×2 (05:15→11:17)
[2024-11-05] MEDS: ACETAMINOPHEN 325 MG TABLET 650 MG PO ×4 (05:15→23:30)
[2024-11-05 08:00] VITALS: BP 115/64; PULSE 87; RESP 16; TEMP 36.4; O2SAT 100
--- NOTE | 2024-11-05 08:52 | P.PNOB_ITS ---
OB - PN: Subj Subjective Date/time seen: 11/05/24 08:52 Patient comments: no complaints, pain well controlled, tolerating diet and flatus present [place] baby status: doing well OB - PN: Obj Data Labs 11/05/24 03:51 Labs: Laboratory Results - last 24 hr 11/05/24 03:51 WBC 16.8 H RBC 2.86 L Hgb 7.2 L D Hct 23.4 L MCV 81.8 MCH 25.2 L MCHC 30.8 L RDW 13.2 Plt Count 225 MPV 10.9 H Immature Gran % (Auto) 0.5 Neut % (Auto) 72.1 Lymph % (Auto) 20.3 Mckenzie % (Auto) 6.6 Eos % (Auto) 0.2 Baso % (Auto) 0.3 Lymph # (Auto) 3.40 H Mckenzie # (Auto) 1.1 H Eos # (Auto) 0.0 Baso # (Auto) 0.1 Abs Immat Gran (auto) 0.08 H Absolute Neuts (auto) 12.1 H Absolute Nucleated RBC 0.000 Nucleated RBC % 0.0 OB - PN A/P Assessment and Plan (1) Term : Code(s): Z34.90 - Encounter for supervision of normal , unspecified, unspecified trimester Status: Acute (2) delivery delivered: Code(s): O82 - Encounter for delivery without indication Status: Acute (3) History of delivery: Code(s): Z98.891 - History of uterine scar from previous surgery Status: Acute Plan start iron Time Spent With Patient Time: Total time spent is greater than 50% in coordination of care (as documented) at patient's floor/unit and/or counseling patient: Review of Systems 2 Review of Systems: All systems reviewed & are unremarkable except as noted in HPI and below Exam 2 Const: General: cooperative, healthy appearing and comfortable Nutritional Appearance: average body habitus Orientation/consciousness: oriented to person, oriented to place and oriented to time Resp: Effort & Inspection: normal respiratory effort Cardio: Rate: regular rate Rhythm: regular rhythm Heart sounds: S1 normal heart sound present and S2 normal heart sound present GI: Inspection: normal to inspection and incision (cdi)
[2024-11-05] MEDS: MULTIVIT/MIN/PREN/FOL AC/IRON TABLET 1 TAB PO (09:44)
[2024-11-05] MEDS: POLYSACCHARIDE IRON COMPLEX 150 MG CAPSULE PO ×2 (09:45→17:04)
[2024-11-05] MEDS: SIMETHICONE 80 MG TAB.CHEW PO ×3 (09:45→17:03)
[2024-11-05] MEDS: DOCUSATE SODIUM 100 MG CAPSULE PO ×2 (09:45→17:03)
--- NOTE | 2024-11-05 09:55 | PC.NURSE ---
Met with mother regarding . She has been bottle feeding overnight due a painful latch and nipple blisters. Encouraged her to call out for latching assistance if desired. Patient aware that we can assist her with initiating pumping if she would like to continue to provide breast milk for baby. Patient states she will call out if needed. Reported to primary RN.
--- NOTE | 2024-11-05 10:55 | PC.NURSE ---
Patient called out for assistance. Baby was circumcised this morning and is very sleepy. We tried for several minutes and he did open his mouth a few times but never maintained a latch. He tends to hold his tongue to the roof of his mouth. Encouraged parents to go ahead and bottle feed at this time since baby hasn't eaten for several hours. At the next feeding time we can attempt to breastfeed again. Reported to primary RN.
[2024-11-05 12:38] VITALS: BP 121/69; PULSE 78; RESP 16; TEMP 36.9; O2SAT 100
--- NOTE | 2024-11-05 14:20 | PC.NURSE ---
Attempted to met with patient regarding how the last feeding went since she hadn't called for any assistance. Mom was in the bathroom and dad states that they tried to feed baby again just a little bit ago but that he was sleepy. It has been just 3 hours since the last feeding time. Encouraged dad to have mom call out for any assistance with feeding. He states he will let her know. Reported to RN.
--- NOTE | 2024-11-05 16:00 | PC.NURSE ---
Mother called out for assistance. Infant was swaddled and held when I entered. We undressed and tried to wake him and he gave a few attempts to latch. He is a tongue thruster. During a latch attempt, baby began to gag and then spit up some old formula and tylenol. Mom held him upright for 15 minutes and then he had a diaper change and mom attempted to latch again independently. When we discussed trying to latch again with my assistance, mom states that baby seems hungry but just won't latch. Parents chose to give a bottle and initiate pumping at this time. Patient was provided with a [employer] breast pump. She is familiar with pumping and prefers a 21mm flange. She exclusively pumped and bottle fed with her other child. Patient educated on pump use, cleaning, and storage of breast milk. Encourage 15 minutes of pumping every 3 hours. Baby was feeding well with the bottle. Reported to RN.
[2024-11-05] MEDS: IBUPROFEN 600 MG TABLET PO ×2 (17:03→23:30)
--- NOTE | 2024-11-05 17:27 | WPDANLDPN2 ---
Anes-Prog Note L&D Date/Time: 11/05/24 17:27 Comfortable throughout: labor and delivery Neuraxial method: epidural Epidural/Spinal procedure site: clean & non-tender Neuro status: Neuro function grossly intact. Cardiovascular status: normal Respiratory status: normal Airway patency: baseline Mental status: baseline Post-Op hydration status: normal Vital Signs: Last Vital Signs Temp 98.4 F 11/05/24 12:38 Pulse 78 11/05/24 12:38 Resp 16 11/05/24 12:38 BP 121/69 11/05/24 12:38 Pulse Ox 100 11/05/24 12:38 O2 Del Method Room Air 11/04/24 15:55 Pain score (VAS): 0/10 I/O: Intake & Output 11/05/24 11/05/24 11/05/24 07:59 15:59 23:59 Intake Total 1000 500 Output Total 1800 800 Balance -800 -300 Post-procedural complaints: none Patient feedback: Patient satisfied with anesthetic care.
--- NOTE | 2024-11-05 17:27 | WPDANLDNPN2 ---
Anes-Prog Note L&D-Neuraxial Date/Time: 11/05/24 17:27 Neuraxial medications: intrathecal PF morphine Opiod-related complaints: none Patient feedback: Patient satisfied with post-operative pain management.
[2024-11-05 20:00] VITALS: BP 97/56; PULSE 77; RESP 18; TEMP 36.7; O2SAT 99
[2024-11-06] MEDS: IBUPROFEN 600 MG TABLET PO (05:15)
[2024-11-06] MEDS: ACETAMINOPHEN 325 MG TABLET 650 MG PO (05:15)
[2024-11-06 08:00] VITALS: BP 134/78; PULSE 90; RESP 16; TEMP 36.4; O2SAT 99
[2024-11-06] MEDS: POLYSACCHARIDE IRON COMPLEX 150 MG CAPSULE PO (08:16)
[2024-11-06] MEDS: SIMETHICONE 80 MG TAB.CHEW PO (08:16)
[2024-11-06] MEDS: DOCUSATE SODIUM 100 MG CAPSULE PO (08:16)
[2024-11-06] MEDS: MULTIVIT/MIN/PREN/FOL AC/IRON TABLET 1 TAB PO (08:17)
--- NOTE | 2024-11-06 09:18 | P.PNOB_ITS ---
OB - PN: Subj Subjective Date/time seen: 11/06/24 09:18 Patient comments: no complaints and pain well controlled baby status: doing well [place] feeding status: pumping and bottle feeding OB - PN: Obj Data Labs 11/05/24 03:51 OB - PN A/P Plan day: 2 Plan: routine care and discharge home Time Spent With Patient Time: Total time spent is greater than 50% in coordination of care (as documented) at patient's floor/unit and/or counseling patient: Exam 2 Narrative: inc c/d/i : Bimanual exam- vagina & uterus: other (Uterus firm, nt @U)
--- NOTE | 2024-11-06 10:02 | PC.NURSE ---
0840:Introductions were made, communication board updated. Mother explained that she is having discomfort when pumping. She is currently using size 21mm flange. Blisters bilaterally noted on nipples. Measured nipples with tool (22mm) which puts her in size 27mm for [employer] pump (which she has at home as well). Patient states that she believes her nipples may be swollen and wishes to use size 24mm flange. Explained that using the incorrect flange size may result in pain and trauma to her nipples. Patient states understanding and agrees to try 27mm flange with next pumping session to see if it is less painful. She will call for help, if needed.
[2024-11-08 11:22] VITALS: BP 140/85; PULSE 88; RESP 18; TEMP 36.8; O2SAT 99
== END 2024-11-06 11:18 | disposition home or self-care (01) | DRG 788 ==
LOC: ANHLDR 13:33 → ANHOB2 11-06 09:25 → ANHLDR 11-08 12:34 → ANHOB2 11-08 12:34
PROVIDERS: Admitting Provider Obstetrics & Gynecology; Visit Provider Obstetrics & Gynecology Gynecology
PROC: 10D00Z1 Extraction of Products of Conception, Low, Open Approach (ICD-10-PCS; CPT 59514; principal; 2024-11-04 12:00)
DX: O34.211 Maternal care for low transverse scar from previous cesarean delivery (principal); Z37.0 Single live birth; Z3A.39 39 weeks gestation of pregnancy
CPT/HCPCS: 36415; 85025; A9270; J0690; J1596; J1885; J2274; J2371; J2405; J2590; J3010; J7120